=== PATIENT | female | born 1955 | race Caucasian/White ===

== ENCOUNTER 2017-08-03 15:59 | Observation (INO) | payer BC ==
[~2017-08-03] VITALS: Ht 170.2 cm; Wt 89.2 kg
[~2017-08-03 15:59] MED LIST: LYRICA75 MG PO; PREVACID30 MG PO; PRISTIQ100 MG PO; TOPROL XL50 MG PO; ZETIA10 MG PO
[2017-08-03 17:27] LABS: HEMATOCRIT 42.8 % (36.0-46.0); MCH 29.2 PG (29.0-34.0); MCHC 34.8 G/DL (30.0-36.0); MCV 83.8 FL (83-99); MEAN PLAT.VOLUME 11.7 uM^3 (9.5-12.4); PLATELET COUNT 156 K/uL (156-360); RBC DIS.WIDTH-CV 12.2 % (11.8-14.6); RED BLOOD COUNT 5.11 M/uL (3.80-5.20)
[2017-08-03 17:33] LABS: CHLORIDE 103 mEq/L (99-109); POTASSIUM 4.3 mEq/L (3.7-5.4); SODIUM 138 mEq/L (136-147)
[2017-08-03 17:34] LABS: GLUCOSE 128 mg/dL (70-99)
[2017-08-03 17:36] LABS: ANION GAP 8 MEQ/L (2-14)
[2017-08-03 17:38] LABS: GFR ESTIMATE (CALCULATED) > 59 mL/min/
[2017-08-03 17:39] LABS: UREA NITROGEN (BUN) 20 mg/dL (9-23)
[2017-08-03 17:47] LABS: ADD MIUA? YES; BILIRUBIN NEGATIVE; BLOOD NEGATIVE; COLOR AMBER ((YELLOW)); GLUCOSE (STRIP) NEGATIVE; KETONES NEGATIVE; LEUKOCYTES NEGATIVE; NITRITE NEGATIVE; PROTEIN (STRIP) 30; SPECIFIC GRAVITY 1.036 (1.000-1.030)
[2017-08-03 18:23] LABS: AMORPHOUS URATES CRYSTALS 4+; BACTERIA RARE /HPF; CASTS NONE SEEN /LPF; CRYSTALS PRESENT; EPITHELIAL CELLS 1+ /HPF; MUCUS NONE SEEN /LPF; RED BLOOD CELLS RARE /HPF (0-5); UCUL ADDED? NO; WHITE BLOOD CELLS RARE /HPF (0-5)
[2017-08-03] MEDS ORDERED: VITAMIN B-12500 MC5 SL (19:34)
[2017-08-03 21:01] LABS: Estimated Average Glucose 134 mg/dL (70-123); HEMOGLOBIN A1c (GLYCOHEMOGLOB) 6.3 % HGB (Below 5.7)
[2017-08-03 21:01] LABS: HEMATOCRIT 43.3 % (36.0-46.0); MCH 28.7 PG (29.0-34.0); MCHC 34.4 G/DL (30.0-36.0); MCV 83.4 FL (83-99); MEAN PLAT.VOLUME 11.8 uM^3 (9.5-12.4); PLATELET COUNT 170 K/uL (156-360); RBC DIS.WIDTH-CV 12.3 % (11.8-14.6); RBC DIS.WIDTH-SD 37.2 % (39-53); RED BLOOD COUNT 5.19 M/uL (3.80-5.20); WHITE BLOOD COUNT 10.9 K/uL (4.1-10.2)
[2017-08-03 21:12] LABS: HDL CHOLESTEROL 32 MG/DL (Desirable>=50); LDL CHOLESTEROL 113 mg/dL (Desirable<100); NON-HDL CHOLESTEROL 143 mg/dL (Desirable<160); TOTAL CHOLESTEROL 175 mg/dL (Desirable<200); TRIGLYCERIDES 151 MG/DL (Normal: <150)
[2017-08-03 21:59] VITALS: BP 145/65
[2017-08-04 03:33] VITALS: BP 133/71
[2017-08-04 07:43] VITALS: BP 130/73
[2017-08-04 11:50] VITALS: BP 127/64
== END 2017-08-04 15:38 | disposition home or self-care (01) ==
LOC: EME 15:59 → 5SOUTH 19:30 → EDOF 19:30 → ENRESERV 19:45 → 5SOUTH 21:46
PROVIDERS: Hospitalist; Physician Assistant Medical
DX: H57.12 Ocular pain, left eye (principal); H53.8 Other visual disturbances; I65.22 Occlusion and stenosis of left carotid artery; Z98.49 Cataract extraction status, unspecified eye; Z96.1 Presence of intraocular lens; I10 Essential (primary) hypertension; F32.9 Major depressive disorder, single episode, unspecified; G47.30 Sleep apnea, unspecified; J44.9 Chronic obstructive pulmonary disease, unspecified; K21.9 Gastro-esophageal reflux disease without esophagitis; E78.5 Hyperlipidemia, unspecified; Z87.891 Personal history of nicotine dependence; Z82.49 Family history of ischemic heart disease and other diseases of the circulatory system; Z82.3 Family history of stroke; Z90.49 Acquired absence of other specified parts of digestive tract; Z90.710 Acquired absence of both cervix and uterus; Z88.2 Allergy status to sulfonamides; Z88.5 Allergy status to narcotic agent; Z88.8 Allergy status to other drugs, medicaments and biological substances
CPT/HCPCS: 70450; 70487; 70551; 80048; 80061; 81003; 83036; 85027; 85651; 93005; 93880; 99281; 99285; G0378; J1650